=== PATIENT | female | born 1945 | race Native Hawaiian/Other Pacific Islander ===

== ENCOUNTER 2017-06-11 09:55 | Day surgery (SDC) | payer OTHER | END 2017-06-11 13:35 | disposition home or self-care (01) | LOC: OR 09:55 | PROC: 08RK3JZ Replacement of Left Lens with Synthetic Substitute, Percutaneous Approach (ICD-10-PCS; principal; 2017-06-11) | DX: H25.812 Combined forms of age-related cataract, left eye (principal) | CPT/HCPCS: 66984 ==

== ENCOUNTER 2017-06-29 10:43 | Outpatient (CLI) | payer OTHER | END 2017-06-29 19:06 | disposition home or self-care (01) | LOC: RAD 10:43 | DX: M81.0 Age-related osteoporosis without current pathological fracture (principal); Z12.31 Encounter for screening mammogram for malignant neoplasm of breast ==